=== PATIENT | female | born 1990 | race Caucasian/White ===

== ENCOUNTER 2023-09-27 15:48 | Emergency (ER) | payer BC ==
[~2023-09-27] VITALS: Ht 167.6 cm; Wt 81.0 kg
[2023-09-27 15:54] VITALS: BP 113/69
[2023-09-27 16:00] VITALS: BP 103/63
[2023-09-27] MEDS ORDERED: JARDIANCE25 MG PO (16:12)
[2023-09-27] MEDS ORDERED: GLYBURIDE5 M1 PO (16:12)
[2023-09-27] MEDS ORDERED: MUPIROCIN2 % EX (16:13)
[2023-09-27] MEDS ORDERED: VIBRAMYCIN100 M2 PO (16:13)
[2023-09-27 16:15] VITALS: BP 108/69
[2023-09-27 16:30] VITALS: BP 95/60
== END 2023-09-27 16:34 | disposition home or self-care (01) | DRG 638 ==
LOC: ED 15:48
DX: E11.622 Type 2 diabetes mellitus with other skin ulcer (principal); L03.115 Cellulitis of right lower limb; L97.319 Non-pressure chronic ulcer of right ankle with unspecified severity; E11.42 Type 2 diabetes mellitus with diabetic polyneuropathy; T38.3X6A Underdosing of insulin and oral hypoglycemic [antidiabetic] drugs, initial encounter; Z91.128 Patient's intentional underdosing of medication regimen for other reason; Z79.84 Long term (current) use of oral hypoglycemic drugs